=== PATIENT | female | born 1955 | race Caucasian/White ===

== ENCOUNTER → 2017-04-11 | Outpatient (CLI) | payer OTHER | LOC: RAD 11:47 | DX: S60.221A Contusion of right hand, initial encounter (principal); M19.041 Primary osteoarthritis, right hand; X58.XXXA Exposure to other specified factors, initial encounter; Y93.89 Activity, other specified; Y92.89 Other specified places as the place of occurrence of the external cause; Y99.8 Other external cause status ==

== ENCOUNTER → 2019-03-14 | Outpatient (CLI) | payer OTHER | LOC: HYPER 12:44 | DX: S61.502A Unspecified open wound of left wrist, initial encounter (principal); B35.1 Tinea unguium; W54.0XXA Bitten by dog, initial encounter; Y93.89 Activity, other specified; Y92.89 Other specified places as the place of occurrence of the external cause; Y99.8 Other external cause status ==

== ENCOUNTER → 2019-03-26 | Outpatient (CLI) | payer OTHER | LOC: HYPER 06:38 | DX: S61.502D Unspecified open wound of left wrist, subsequent encounter (principal); B35.1 Tinea unguium; W54.0XXD Bitten by dog, subsequent encounter ==

== ENCOUNTER → 2019-09-10 | Outpatient (CLI) | payer OTHER ==
[~2019-09-10] VITALS: Ht 170.2 cm; Wt 68.0 kg
[~2019-09-10] MED LIST: CALCIUM + D3 E1 EACH PO; LIPITOR10 MG PO; VITAMIN C500 M2 PO; VITAMIN D325 MC3 PO
--- NOTE | 2019-09-11 13:58 | P ---
[facility] [place] [address] PROCEDURE REPORT Name: MARY GAFFNEY Room #: [facility]#: [id number] Admission: 09/10/19 Attend Phys: Ryan Beavers Discharge: Date of : 59 Report #: [id number] THIS REPORT FOR: //name// CC: Ryan Estrella MD DATE OF SERVICE: 09/10/2019 PROCEDURE PERFORMED: Colonoscopy. HISTORY OF PRESENT ILLNESS: The patient is a 63-year-old female who presents today for routine screening colonoscopy. She denies any symptoms. No family history of colon cancer. DESCRIPTION OF PROCEDURE: The risks and benefits of the procedure were explained to the patient, those risks including but not limited to bleeding, perforation, the risk of sedation. She understood these risks and gave informed consent. Sedation was given using propofol per anesthesia. Next, a digital rectal exam was initially performed, which was normal. Next, using a standard Olympus colonoscope, the scope was placed in the patient's anus and advanced under direct vision to the cecum. The overall prep was excellent. The cecum and ileocecal valve were normal in appearance. Ascending, transverse and descending colon were normal. Multiple diverticula were noted in the sigmoid colon, no evidence of inflammation, otherwise normal. The rectal mucosa was normal. On retroflexion, no abnormalities were noted. The scope was then withdrawn and the procedure terminated. The patient tolerated the procedure well. IMPRESSION: 1. Sigmoid diverticulosis. 2. Otherwise, normal colonoscopy. RECOMMENDATIONS: Repeat colonoscopy in 10 years. Thank you for allowing me to participate in her care. <ELECTRONICALLY SIGNED> By: Ryan Mantilla MD 09/11/19 [id number] Ryan Mantilla MD /nt
== END | disposition home or self-care (01) ==
LOC: GI 08:06
DX: Z12.11 Encounter for screening for malignant neoplasm of colon (principal); K57.30 Diverticulosis of large intestine without perforation or abscess without bleeding; E78.00 Pure hypercholesterolemia, unspecified; Z98.890 Other specified postprocedural states; Z79.899 Other long term (current) drug therapy
CPT/HCPCS: 62110; 62900

== ENCOUNTER → 2020-06-25 | Outpatient (CLI) | payer OTHER | LOC: NUC 06-16 10:06 | PROVIDERS: ATTEND Nurse Practitioner | DX: M85.88 Other specified disorders of bone density and structure, other site (principal); T14.8XXA Other injury of unspecified body region, initial encounter ==